=== PATIENT | male | born 1995 | race Caucasian/White ===

== ENCOUNTER 2021-04-16 01:39 | Emergency (ER) | payer MEDICAID, OTHER ==
[~2021-04-16] VITALS: Ht 177.8 cm; Wt 132.4 kg
[2021-04-16 01:42] VITALS: BP 203/101
--- NOTE | 2021-04-16 01:53 | ED Upper Extremity ---
General Chief Complaint: Upper Extremity Stated Complaint: LT SHOULDER PAIN History of Present Illness Date Seen by Provider: Apr 16, 2021 Time Seen by Provider: 01:50 Initial Comments 25-year-old male presents with left posterior shoulder/back pain. Is located near his scapula. Pain gets worse with movement or deep breath. Patient presents because he just wants to be checked out because he was told by his doctor that that based on his EKG that he has a "enlarged heart" patient's not short of breath. No nausea vomiting diaphoresis or chest pain. However he is just concerned it could be his heart. It is comfortable lately reproducible with palpation and movement of his left arm/shoulder. Allergies and Home Medications Allergies Coded Allergies: Penicillins (Verified Allergy, Severe, 04/16/21) Patient Home Medication List Home Medication List Reviewed: Yes Review of Systems Constitutional: no symptoms reported EENTM: no symptoms reported Respiratory: no symptoms reported Cardiovascular: no symptoms reported Gastrointestinal: no symptoms reported Genitourinary: no symptoms reported Musculoskeletal: see HPI Skin: no symptoms reported Psychiatric/Neurological: No Symptoms Reported Physical Exam Vital Signs Vital Signs - First Documented 04/16/21 01:42 Temp 36.7 Pulse 75 Resp 18 B/P (MAP) 203/101 (135) Pulse Ox 96 O2 Delivery Room Air Capillary Refill : Height, Weight, BMI Height: '" Weight: lbs. oz. kg; BMI Method: General Appearance: WD/WN, no apparent distress Neck: full range of motion, supple Cardiovascular: normal peripheral pulses, regular rate, rhythm, no edema Respiratory: lungs clear, normal breath sounds Gastrointestinal: non tender, soft Back: other (Tenderness along the posterior thoracic wall near border of the scapula, totally reproducible) Shoulder: normal ROM Elbow/Forearm: normal inspection Wrist: Yes normal inspection Hand: normal inspection Neurologic/Tendon: normal sensation, normal motor functions Neurologic/Psychiatric: no motor/sensory deficits, alert, normal mood/affect, oriented x 3 Skin: normal color, warm/dry Progress/Results/Core Measures Results/Orders My Orders Orders - SHIVANI COLE DO Ekg Tracing (04/16/21 01:56) Chest 1 View Ap/Pa Only (04/16/21 01:56) Vital Signs/I&O 04/16/21 01:42 Temp 36.7 Pulse 75 Resp 18 B/P (MAP) 203/101 (135) Pulse Ox 96 O2 Delivery Room Air Progress Progress Note : Progress Note Patient was scared and requested an EKG and chest xray. Patient with no acute findings on either with a completely normal EKG. Patient symptoms are completely reproducible with arm movement especially against resistance. Patient symptoms are very musculoskeletal in nature. Discussed with him the need to use some ibuprofen or Tylenol. Patient stable and discharged home Initial ECG Impression Date: Apr 16, 2021 Initial ECG Impression Time: 02:00 Initial ECG Rate: 67 Initial ECG Rhythm: Normal Sinus Initial ECG Intervals: Normal Initial ECG Impression: Normal Diagnostic Imaging Diagonstic Imaging: Xray Plain Films/CT/US/NM/MRI: chest Comments No acute process noted Reviewed: Reviewed by Me Departure Impression Primary Impression: Strain of thoracic paraspinal muscles excluding T1 and T2 levels Qualified Codes: S29.012A - Strain of muscle and tendon of back wall of thorax, initial encounter Additional Impression: Upper back pain on left side Disposition: 01 HOME, SELF-CARE Condition: Stable Departure-Patient Inst. Patient Instructions: Muscle Strain ED Add. Discharge Instructions: Tylenol or ibuprofen as needed for pain 4% topical lidocaine with menthol to affected area as directed on package Follow-up with your primary care provider if symptoms not improved in the next 3 to 4 days. All discharge instructions reviewed with patient and/or family. Voiced understanding. SHIVANI COLE DO Apr 16, 2021 01:53
--- NOTE | 2021-04-16 07:30 | Diagnostic Imaging Report ---
EXAMINATION: Chest radiograph, portable AP view. DATE: 04/16/2021 2:07 AM INDICATION: 25-year-old male, left shoulder pain. COMPARISON: None. FINDINGS: Heart size and mediastinal contours are unremarkable. There is no identified pneumothorax. There is no large pleural effusion. There is no identified focal airspace consolidation. IMPRESSION: No identified acute cardiopulmonary abnormality. Dictated by: Dictated on workstation # [id number]
== END 2021-04-16 02:11 | disposition home or self-care (01) ==
LOC: ER FS 01:41
DX: S29.012A Strain of muscle and tendon of back wall of thorax, initial encounter (principal); X58.XXXA Exposure to other specified factors, initial encounter
CPT/HCPCS: 71045; 93005

== ENCOUNTER 2021-12-23 20:47 | Emergency (ER) | payer MEDICAID ==
[~2021-12-23] VITALS: Ht 178 cm; Wt 128.8 kg
[2021-12-23 21:07] VITALS: BP 149/95
--- NOTE | 2021-12-23 21:17 | ED Respiratory ---
General Stated Complaint: SORE THROAT,R EAR PAIN, HAND HURTS Source: patient Exam Limitations: no limitations History of Present Illness Date Seen by Provider: Dec 23, 2021 Time Seen by Provider: 21:15 Initial Comments Patient is a 26-year-old male who presents ED with URI symptoms. Reports nasal congestion, cough, right ear pain over the past 2 days. No vomiting, diarrhea, shortness of breath, chest pain, abdominal pain. Denies any fever at home. Other family members at home with similar symptoms. Denies taking thing for his symptoms. Woke up with pain in the right wrist. Unclear if the slept on his wrist wrong. Pain occurs with movement. No swelling or bruising. Allergies and Home Medications Allergies Coded Allergies: Penicillins (Verified Allergy, Severe, 04/16/21) Patient Home Medication List Home Medication List Reviewed: Yes Azithromycin (Azithromycin) 250 Mg Tablet, 250 MG PO UD Prescribed by: CONSUELO NAVARRO on 12/23/212202 Naproxen (Naproxen) 500 Mg Tablet.dr, 500 MG PO BID Prescribed by: CONSUELO NAVARRO on 12/23/212203 Review of Systems Review of Systems Constitutional: chills; No diaphoresis; malaise, weakness EENTM: ear pain, throat pain, throat swelling Respiratory: cough; No short of breath, No wheezing Cardiovascular: No chest pain, No edema Gastrointestinal: No abdominal pain, No diarrhea, No nausea, No vomiting Genitourinary: No decreased output, No discharge Musculoskeletal: No back pain, No gout Skin: No change in color, No change in hair/nails All Other Systems Reviewed Negative Unless Noted: Yes Past [id number] Hx Past Medical History Surgery/Hospitalization HX: History of hypertension. States his doctor just placed him on a second blood pressure medication. Physical Exam Vital Signs - First Documented 12/23/21 21:07 Temp 37.4 Pulse 115 Resp 22 B/P (MAP) 149/95 (113) Pulse Ox 95 O2 Delivery Room Air Capillary Refill : Height: '" Weight: lbs. oz. kg; 41.00 BMI Method: General Appearance: WD/WN, no apparent distress Eyes: Bilateral Eye Normal Inspection, Bilateral Eye PERRL, Bilateral Eye EOMI HEENT: other (Bilateral TMs with erythema and swelling without exudate. Oropharynx with mild erythema and swelling. Obvious exudate. 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, no motor/sensory deficits, alert, normal mood/affect Skin: normal color, warm/dry Progress/Results/Core Measures Suspected Sepsis SIRS Temperature: Pulse: Respiratory Rate: Blood Pressure / Mean: Results/Orders Lab Results Laboratory Tests Test 12/23/21 21:10 Range/Units Influenza Type A (RT-PCR) Not Detected Not Detecte Influenza Type B (RT-PCR) Not Detected Not Detecte SARS-CoV-2 RNA (RT-PCR) Not Detected Not Detecte Group A Streptococcus Screen NEGATIVE NEGATIVE My Orders Orders - ZORA STEWART Rapid Strep A Screen (12/23/21 21:13) Influenza A And B By Pcr (12/23/21 21:13) Covid 19 Inhouse Test (12/23/21 21:13) Wrist, Right, 3 Views Or More (12/23/21 21:13) Vital Signs/I&O 12/23/21 21:07 Temp 37.4 Pulse 115 Resp 22 B/P (MAP) 149/95 (113) Pulse Ox 95 O2 Delivery Room Air Capillary Refill : Departure Communication (PCP) X-ray of the right wrist negative for fracture. No swelling erythema or ecchymosis. Normal active range of motion with pain. Likely wrist sprain. Pj wrap, Velcro splint for comfort. Anti-inflammatories for pain. Orthopedic follow-up in 7 to 10 days. Covid, influenza and strep negative. Patient states sister tested positive for strep. Liss TMs concerning for otitis media will discharge azithromycin. Allergic to penicillins. Recommend continue with anti- inflammatories for pain, [id number] Robitussin for cough. If any worsening symptoms return back to ED for further evaluation. Follow-up your PCP in 2 to 3 days for evaluation. Impression Primary Impression: Otitis media Disposition: 01 HOME, SELF-CARE Condition: Stable Departure-Patient Inst. Decision time for Depature: 22:00 Referrals: VISHAL LEE MD (PCP/Family) Primary Care Physician Patient Instructions: Ear Infection ED Scripts Naproxen (Naproxen) 500 Mg Tablet.dr 500 MG PO BID for 10 Days, #20 TAB Prov: ZORA STEWART 12/23/21 Azithromycin (Azithromycin) 250 Mg Tablet 250 MG PO UD, #6 TAB TAKE 2 TABLETS ON DAY ONE THEN TAKE 1 TABLET DAILY FOR FOUR MORE DAYS Prov: ZORA STEWART 12/23/21 ZORA STEWART Dec 23, 2021 21:17
[2021-12-23] MEDS ORDERED: AZIT250T12 PO (22:03)
[2021-12-23] MEDS ORDERED: NAPR500T8 PO (22:04)
--- NOTE | 2021-12-23 22:04 | Diagnostic Imaging Report ---
EXAMINATION: Right wrist 3 or more views REASON FOR EXAM: Right wrist pain. COMPARISON: None available. FINDINGS: There is no acute fracture or dislocation of the right wrist. There is normal alignment of the wrist and carpel bones. The imaged joint spaces are preserved. No large joint effusion is seen in the right wrist. The surrounding soft tissues are unremarkable. IMPRESSION: 1. No acute fracture or dislocation in the right wrist. Dictated by: Dictated on workstation # [id number]
== END 2021-12-23 22:13 | disposition home or self-care (01) ==
LOC: ER 20:47
DX: H66.91 Otitis media, unspecified, right ear (principal); M25.531 Pain in right wrist; R05.1 Acute cough; R09.81 Nasal congestion; Z20.822 Contact with and (suspected) exposure to COVID-19
CPT/HCPCS: 73110; 87430; 87636